=== PATIENT | female | born 1985 | race Hispanic/Latino ===

== ENCOUNTER 2022-03-31 19:36 | Emergency (ER) | payer OTHER, SELFPAY ==
[2022-03-31 19:49] VITALS: BP 169/95; PULSE 71; RESP 15; TEMP 36.6; O2SAT 100; BMI 44.2
--- NOTE | 2022-03-31 20:17 | ED_ITS ---
HPI - General Adult General Chief complaint: Upper Respiratory Symptoms Stated complaint: Thinks sinus infection Time Seen by Provider: 03/31/22 20:00 Source: patient Mode of arrival: Ambulatory History of Present Illness HPI narrative: Patient is a 36-year-old female who is here for evaluation of which she states his a sinus infection. Seven days ago she started having sinus congestion. Was given Afrin by her primary provider. Has been using this without much improvement. She has also been doing some Mucinex at home ill much improvement. She was tested for COVID earlier today which she reports was negative. Related Data Home Medications Medication Instructions Recorded Confirmed bupropion HCl 150 mg 24 hr tablet, 150 mg PO DAILY tab 01/28/22 01/28/22 extended release copper 380 square mm intrauterine INTRAUTERINE 01/28/22 01/28/22 device (ParaGard T 380A) Allergies Allergy/AdvReac Type Severity Reaction Status Date / Time No Known Drug Allergies Allergy Unverified 01/28/22 13:18 Review of Systems Constitutional Constitutional: Reports as per HPI and Reports system reviewed and no additional complaints, except as documented ENT Ears, Nose, Mouth, and Throat: Reports system reviewed and no additional complaints, except as documented and Reports as per HPI Respiratory Respiratory: Reports system reviewed and no additional complaints, except as documented Hematologic/Lymphatic On Anticoagulants: No Allergic/Immunologic Allergic/Immunologic: Reports system reviewed and no additional complaints, except as documented Patient History Medical History Chicken pox (~1993) Eczema (~1998) Headache (~1997) Heavy menstrual period Idiopathic intracranial hypertension (~2010) Irregular menstrual cycle Migraines (~1997) Tinnitus (~2013) Vaginal delivery Family History (Updated 01/27/22 @ 20:31 by Kath Mckeon) Father Hypertension Hyperlipidemia Mother Hypertension Grandfather Hypertension Hyperlipidemia Grandmother Hypertension Social History Smoking Status: Never smoker Smoking Status: Never smoker Substance Use Type: does not use Exam Initial Vital Signs Initial Vital Signs: Vital Signs Temperature 97.9 F 03/31/22 19:49 Pulse Rate 71 03/31/22 19:49 Respiratory Rate 15 03/31/22 19:49 Blood Pressure 169/95 H 03/31/22 19:49 Pulse Oximetry 100 03/31/22 19:49 Const General: cooperative, healthy appearing, comfortable, well developed, well groomed, No acute distress and No ill appearing HENMT Head: normal to inspection and normocephalic Ears: TM abnormal bulging bilaterally, wth effusion serous bilaterally and with fluid behind the TM bilaterally; Negative for not bullous, not dull and not erythematous Throat: posterior oropharynx normal Resp Effort & Inspection: normal respiratory effort Auscultation: clear to auscultation bilaterally Cardio Rate: regular rate Rhythm: regular rhythm Skin General: no rashes or lesions noted Extrem General: normal to inspection and capillary refill normal Course Vital Signs Vital signs: Vital Signs - 8 hr 03/31/22 19:49 03/31/22 20:25 Temperature 97.9 F Pulse Rate 71 66 Respiratory Rate 15 18 Blood Pressure 169/95 H 170/77 H Pulse Oximetry 100 99 Medical Decision Making MDM Narrative Medical decision making narrative: Patient is well-appearing. Has a obvious upper respiratory infection with the symptoms she presents with that also bilateral bulging tympanic membranes without erythema. Her oropharynx is unremarkable. Patient does have a sinus infection however this is most likely viral infection. She has not been on any significant decongestants or antihistamines. I did discuss this with her. There is no indication for antibiotics currently is this is most likely viral infection. I discussed this with her as well. She will start a daily antihistamine and also a steroid nose spray. She can purchase these [id number]. She is instructed to contact her primary doctor for follow- up. She expressed understanding and agreement. Discharge Plan Departure Patient Disposition: Home Clinical Impression: Upper respiratory infection Instructions: DI for Viral Upper Respiratory Infection -- Adult Activity Restrictions/Additional Instructions: Your physical exam today is consistent with an upper respiratory infection however these types of infections are viral in do not require antibiotics. I recommend that you start taking an antihistamine such as Claritin or Linda or Zyrtec. You can purchase the generic versions of these medications [id number]. You can also consider doing Flonase/Nasonex. These medications can also be purchased [id number] and the generic version is appropriate as well. You can take Tylenol/ibuprofen for any headaches. Contact your primary doctor for a follow-up. Prescriptions: No Action bupropion HCl 150 mg tablet extended release 24 hr 150 mg PO DAILY 0RF ParaGard T 380A 380 square mm intrauterine device intrauterine 0RF Referrals: Solomon Garcia MD [Primary Care Provider] -
[2022-03-31 20:25] VITALS: BP 170/77; PULSE 66; RESP 18; O2SAT 99
== END 2022-03-31 20:26 | disposition home or self-care (01) ==
PROVIDERS: Emergency Provider Emergency Medicine; PCP Family Medicine
DX: J06.9 Acute upper respiratory infection, unspecified (principal)
CPT/HCPCS: 99281